=== PATIENT | female | born 1975 | race Hispanic/Latino ===

== ENCOUNTER 2018-06-14 23:09 | Emergency (ER) | payer MEDICAID | END 2018-06-14 23:44 | disposition home or self-care (01) | LOC: EDH 23:09 | DX: S93.491A Sprain of other ligament of right ankle, initial encounter (principal); Z87.891 Personal history of nicotine dependence; X50.1XXA Overexertion from prolonged static or awkward postures, initial encounter; Y93.89 Activity, other specified; Y92.512 Supermarket, store or market as the place of occurrence of the external cause; Y99.8 Other external cause status ==

== ENCOUNTER 2022-01-21 02:26 | Emergency (ER) | payer MEDICAID ==
[~2022-01-21] VITALS: Ht 160 cm; Wt 93.9 kg
[2022-01-21] MEDS ORDERED: FLUORESCEIN SODIUM 1 STRIP STRIP OP SCH (02:30)
[2022-01-21] MEDS ORDERED: TETRACAINE HCL 0.5% 4 ML OPHTH SOLN OP SCH (02:30)
[2022-01-21] MEDS ORDERED: POLY10DR22 OP (02:59)
[2022-01-21 03:38] VITALS: BP 140/82
== END 2022-01-21 03:41 | disposition home or self-care (01) ==
LOC: MERGE 02:26 → EDH 02:26
DX: H10.31 Unspecified acute conjunctivitis, right eye (principal)

== ENCOUNTER 2022-05-24 01:37 | Emergency (ER) | payer MEDICAID ==
[~2022-05-24] VITALS: Ht 160 cm; Wt 95.7 kg
[~2022-05-24 01:37] MED LIST: POLY10DR22 OP
[2022-05-24] MEDS ORDERED: LACTATED RINGERS 1000ML 1,000 ML IV ONE (04:00)
[2022-05-24] MEDS ORDERED: ONDANSETRON 4MG INJ IVP ONE (04:00)
[2022-05-24 04:41] LABS: BASOPHILS % (AUTO) 0.2 % (0.0-5.0); EOSINOPHILS % (AUTO) 0.7 % (0.0-8.0); HEMATOCRIT 40.5 % (36-48); MEAN CORPUSCULAR HEMOGLOBIN 28.4 pg (27.0-33.0); MEAN CORPUSCULAR HGB CONC 32.8 g/dL (32.0-36.0); MEAN CORPUSCULAR VOLUME 86.4 fL (79-99); MONOCYTES % (AUTO) 4.2 % (3.0-13.0); NEUTROPHILS % (AUTO) 81.2 % (40.0-77.0); PLATELET COUNT (AUTO) 214 K/uL (130-400); RED BLOOD CELL COUNT(AUTO) 4.69 MIL/uL (4.00-5.50); RED CELL DISTRIBUTION WIDTH 13.5 % (11.0-15.5); WHITE BLOOD COUNT (AUTO) 10.7 K/uL (4.8-10.8)
[2022-05-24 04:44] LABS: APPEARANCE,URINE CLEAR (CLEAR); BILIRUBIN,URINE NEGATIVE (NEGATIVE); COLOR,URINE YELLOW (YELLOW); GLUCOSE, URINE (UA) NEGATIVE (NEGATIVE); KETONES,URINE NEGATIVE (NEGATIVE); LEUKOCYTE ESTERASE ,URINE NEGATIVE Leu/uL (NEGATIVE); NITRATE,URINE NEGATIVE (NEGATIVE); OCCULT BLOOD,URINE NEGATIVE (NEGATIVE); PH,URINE 7.5 (5.0-8.0); PROTEIN,URINE 20 mg/dL (NEGATIVE)
[2022-05-24] MEDS ORDERED: MORPHINE 2 MG SYG IVP ONE (05:00)
[2022-05-24] MEDS ORDERED: PANTOPRAZOLE 40 MG/VIAL IVP ONE (05:00)
[2022-05-24 05:19] LABS: HCG,QUALITATIVE URINE NEGATIVE (NEGATIVE)
[2022-05-24 05:28] LABS: CREATININE 0.8 mg/dL (0.5-1.5); POTASSIUM 3.7 mmol/L (3.5-5.1)
[2022-05-24 05:32] LABS: ALBUMIN 3.5 g/dL (3.5-5.0); TOTAL PROTEIN, SERUM 6.9 g/dL (6.0-8.3)
[2022-05-24] MEDS ORDERED: ONDA4TAB10 PO (06:07)
[2022-05-24 06:10] VITALS: BP 120/75
== END 2022-05-24 06:16 | disposition home or self-care (01) ==
LOC: EDH 01:37
DX: K52.9 Noninfective gastroenteritis and colitis, unspecified (principal); E86.0 Dehydration; R11.2 Nausea with vomiting, unspecified; Z98.890 Other specified postprocedural states
CPT/HCPCS: 99284; 96374; 96375; 96361; 80053; 83690; 85025; 81003; 81025; 36415; J7120; J2405; S0164; C9113

== ENCOUNTER 2023-07-14 07:22 | Emergency (ER) | payer MEDICAID ==
[~2023-07-14] VITALS: Ht 160 cm; Wt 98.9 kg
[~2023-07-14 07:22] MED LIST changes: +ONDA4TAB10 PO
[2023-07-14 07:33] VITALS: BP 114/83; PULSE 74; RESP 16; O2SAT 99
[2023-07-14 08:01] LABS: RAPID GROUP A STREP negative (NEGATIVE)
[2023-07-14 08:11] LABS: INFLUENZA TYPE A Negative For Type A (NEGATIVE); INFLUENZA TYPE B Negative For Type B (NEGATIVE)
[2023-07-14 08:15] LABS: SARS-CoV-2, RNA, NAAT NEGATIVE SARS CoV-2 (NEGATIVE)
[2023-07-14] MEDS: PENICILLIN V POTASSIUM 500 MG TABLET PO ONE (08:35)
[2023-07-14] MEDS: KETOROLAC 60 MG VIAL (30MG/ML) IM ONE (08:35)
[2023-07-14] MEDS ORDERED: PENI500T2 PO (08:38)
== END 2023-07-14 08:45 | disposition home or self-care (01) ==
LOC: EDH 07:22
DX: J03.90 Acute tonsillitis, unspecified (principal); J20.8 Acute bronchitis due to other specified organisms; B96.89 Other specified bacterial agents as the cause of diseases classified elsewhere; Z20.822 Contact with and (suspected) exposure to COVID-19; Z79.899 Other long term (current) drug therapy; Z98.890 Other specified postprocedural states
CPT/HCPCS: 99283; 87635; 87880; 87804 ×2; 96372; J1885

== ENCOUNTER 2024-03-18 17:46 | Emergency (ER) | payer MEDICAID ==
[~2024-03-18] VITALS: Ht 160 cm; Wt 88.9 kg
[~2024-03-18 17:46] MED LIST changes: +ONDA-243 PO; -ONDA4TAB10 PO; +PENI500T2 PO
--- NOTE | 2024-03-18 17:49 | ERN ---
General Stated Complaint: BLADDER PAIN Time Seen by MD: 17:48 Source: patient History of Present Illness Initial Comments 48-year-old female with no significant past medical history presents with several days of dysuria. Patient denies any and all other symptoms Allergies: Coded Allergies: No Known Drug Allergies (Unverified Allergy, Unknown, 01/24/22) Home Meds Active Scripts Penicillin V Potassium (Penicillin V Potassium) 500 Mg Tablet, 1 TAB PO QID for 10 Days, #40 TAB 0 Refills Prov:SWATHI BALDWIN Sr., MD 07/14/23 Ondansetron (Ondansetron Odt) 4 Mg Tab.rapdis, 4 MG PO TID PRN for NAUSEA, #15 TAB 0 Refills Prov:TREY CORRAL MD 05/24/22 Polymyxin B Sulf/Trimethoprim (Polytrim Eye Drops) 10 Ml Drops, 2 DROP OP QID, #10 ML Prov:LOUIE SANCHEZ MD 01/21/22 Past Medical History Past Medical History: No Pertinent History Past Surgical History: Other Surgical History Other: KNEE SX ROS Dictation See HPI Physical Exam Physical Exam Dictation Elevated BMI, well-appearing, no acute distress, abdomen is soft, nontender, ambulatory Results Laboratory and Microbiology Lab and Micro Result Laboratory Tests Test 03/18/24 20:49 Urine Color YELLOW (YELLOW) Urine Appearance CLEAR (CLEAR) Urine pH 5.5 (5.0-8.0) Urine Specific [place] 1.016 (1.001-1.031) Urine Protein NEGATIVE mg/dL (NEGATIVE) Urine Glucose (UA) NEGATIVE mg/dL (NEGATIVE) Urine Ketones NEGATIVE mg/dL (NEGATIVE) Urine Occult Blood NEGATIVE (NEGATIVE) Urine Nitrate NEGATIVE (NEGATIVE) Urine Bilirubin NEGATIVE mg/dL (NEGATIVE) Urine Urobilinogen 0.2 mg/dL (0.2-1.0) Urine Leukocyte Esterase NEGATIVE Bhavin/uL Urine RBC 2-5 /HPF (0-1) H Urine WBC 2-5 /HPF (0-1) H Urine Squamous Epithelial Cells FEW /HPF (0-2) Urine Bacteria RARE /HPF (None Seen) MDM ddx: Pyelonephritis versus UTI versus constipation versus acute appendicitis Considered CT abdomen and pelvis assess for acute appendicitis. Patient's pain is suprapubic. Abdomen is non peritoneal. Low clinical suspicion for acute appendicitis at this time. Patient's UA negative for infection; however, UTIs clinical diagnosis. We will give patient biotics. Return precautions given. Invited and answered all questions prior to discharge. Patient agreeable with plan. Upon re-evaluation, patient's abdomen remains benign ED Course Orders Procedure Category Date Status Time Urinalysis Profile LAB 03/18/24 Complete 18:23 Vital Signs Date Time Temp Pulse Resp B/P (MAP) Pulse Ox O2 Delivery O2 Flow Rate FiO2 03/18/24 20:36 98.1 62 20 115/75 98 Room Air* 0 21 03/18/24 18:25 97.9 61 20 117/76 99 Room Air 0 DX & DISP Disposition: Discharge Departure Impression: Primary Impression: UTI (urinary tract infection) Condition: Stable Scripts Fluconazole (Fluconazole) 50 Mg Tablet 3 TAB PO DAILY for 1 Day, #3 TAB 0 Refills Prov: KENYATTA GRAHAM DO 03/18/24 Nitrofurantoin Monohyd/M-Cryst (Macrobid 100 mg Capsule) 100 Mg Capsule 1 CAP PO BID for 7 Days, #14 CAP 0 Refills Prov: KENYATTA GRAHAM DO 03/18/24 Additional Instructions: Please return to emergency department with new or worsening symptoms arise. Please follow up with primary care physician next available appointment. Referrals: DASIA BA MD (PCP) Time of Disposition: 22:26 MICHAEL PATTON MD Mar 18, 2024 17:49 KENYATTA GRAHAM DO Mar 18, 2024 22:26
[2024-03-18 21:00] LABS: APPEARANCE,URINE CLEAR (CLEAR); BILIRUBIN,URINE NEGATIVE (NEGATIVE); COLOR,URINE YELLOW (YELLOW); GLUCOSE, URINE (UA) NEGATIVE (NEGATIVE); KETONES,URINE NEGATIVE (NEGATIVE); LEUKOCYTE ESTERASE ,URINE NEGATIVE Leu/uL (NEGATIVE); NITRATE,URINE NEGATIVE (NEGATIVE); OCCULT BLOOD,URINE NEGATIVE (NEGATIVE); PH,URINE 5.5 (5.0-8.0); PROTEIN,URINE NEGATIVE (NEGATIVE); UROBILINOGEN,URINE 0.2 mg/dL (0.2-1.0)
[2024-03-18 21:07] LABS: ADD UA MICROSCOPIC YES
[2024-03-18 21:09] LABS: BACTERIA,URINE RARE /HPF (None Seen); MUCUS,URINE RARE LPF (None Seen); SQUAMOUS EPITHELIAL CELL,UR FEW /HPF (0-2)
[2024-03-18] MEDS ORDERED: FLUC50TA29 PO (22:25)
[2024-03-18] MEDS ORDERED: NITR100C4 PO (22:25)
[2024-03-18] MEDS ORDERED: FLUC100T12 PO (22:25)
[2024-03-18 22:30] VITALS: BP 118/75; PULSE 65; RESP 18; TEMP 98.3; O2SAT 98
== END 2024-03-18 22:36 | disposition home or self-care (01) ==
LOC: EDH 17:46
DX: N39.0 Urinary tract infection, site not specified (principal); Z79.899 Other long term (current) drug therapy; Z98.890 Other specified postprocedural states
CPT/HCPCS: 81001; 99283

== ENCOUNTER 2024-07-13 00:20 | Emergency (ER) | payer MEDICAID ==
[~2024-07-13] VITALS: Ht 160 cm; Wt 82.1 kg
[~2024-07-13 00:20] MED LIST changes: +FLUC50TA29 PO; +NITR100C4 PO
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
[2024-07-13] MEDS: TETRACAINE HCL 0.5% 4 ML OPHTH SOLN OP ONE (01:38)
[2024-07-13] MEDS: FLUORESCEIN SODIUM 1 STRIP STRIP OP ONE (01:38)
[2024-07-13] MEDS ORDERED: OFLO35OS OP (01:47)
[2024-07-13 01:57] VITALS: BP 123/74; PULSE 65; RESP 18; TEMP 98.1; O2SAT 99
== END 2024-07-13 01:58 | disposition home or self-care (01) ==
LOC: EDH 00:20
DX: H10.31 Unspecified acute conjunctivitis, right eye (principal); Z79.899 Other long term (current) drug therapy
CPT/HCPCS: 99283